=== PATIENT | female | born 1980 | race African-American/Black ===

== ENCOUNTER 2016-12-30 12:44 | Emergency (ER) | payer MEDICARE, OTHER ==
[~2016-12-30 12:44] MED LIST: CIPRO PO; IBUPROFEN PO; PRILOSEC20 MG PO; PYRIDIUM PO
== END 2016-12-30 13:45 | disposition home or self-care (01) ==
LOC: CED 12:44 → CFTX 12:44
DX: K02.9 Dental caries, unspecified (principal); J45.909 Unspecified asthma, uncomplicated; F17.200 Nicotine dependence, unspecified, uncomplicated
CPT/HCPCS: 99282